=== PATIENT | female | born 1950 | race Caucasian/White ===

== ENCOUNTER 2016-08-11 12:41 | Day surgery (SDC) | payer MEDICARE ==
[~2016-08-11] VITALS: Ht 167.6 cm; Wt 91.2 kg
[2016-08-11] VITALS (8 sets, daily range): BP systolic 117–139; BP diastolic 57–78; PULSE 70–81; RESP 14–18; O2SAT 95–100
[~2016-08-11 12:41] MED LIST: ALPR0.254 PO; BUPR150T12 PO; CeFAZolin 2 Gm/50 mL D5W IV Premix IV ONE; DULO30CA50 PO; HYDR-3797 PO; LOSA100T29 PO; MELA3TAB46 PO; MULT-1018 PO; OXYC1TAB24 PO
[2016-08-11] MEDS ORDERED: Glycopyrrolate 0.2 mg/mL 5 mL Inj ONE (12:42)
[2016-08-11] MEDS ORDERED: MetoCLOpramide 5 mg/mL 2 mL Inj ONE (12:42)
[2016-08-11] MEDS ORDERED: Ondansetron 2 mg/mL 2 mL Inj ONE (12:42)
[2016-08-11] MEDS ORDERED: Propofol 10,000 mCg/mL 20 mL Inj ONE (12:42)
[2016-08-11] MEDS ORDERED: Neostigmine 1 mg/mL 5 mL Inj ONE (12:42)
[2016-08-11] MEDS ORDERED: fentaNYL-PF 50 mCg/mL 2 mL Inj ONE (12:42)
[2016-08-11] MEDS ORDERED: Dexamethasone 4 mg/mL Inj ONE (12:42)
[2016-08-11] MEDS ORDERED: HYDROmorphone 2 mg/mL Inj ONE (12:42)
[2016-08-11] MEDS ORDERED: CeFAZolin 2 Gm/50 mL D5W Duplex Bag IV ONE (13:11)
[2016-08-11] MEDS: Lactated Ringer's 1,000 ML IV SCH ×2 (13:19→15:00)
--- NOTE | 2016-08-11 14:04 | PCM.HPANE ---
Patient Data Surgeon Admitting Provider: Attending Provider:Jamaal Teixeira DO Primary Care Physician:[place]iana Kyle MD [place] [facility] Reason for Visit Left Patella Fracture Ht/WT & BMI Height (Feet): 5 Height (Inches): 6.00 Weight (Kilograms): 91.170 Body Mass Index 32.00 Allergies Coded Allergies: lisinopril (Verified Allergy, Intermediate, COUGH, 06/11/16) Past Anesthesia History Anesthesia History: Denies:: Anesthesia Reactions, Malignant Hyperthermia Diabetes History Hx Diabetes?: No MRSA MRSA: No Medications Active Scripts Hydroxyzine Pamoate (HydrOXYzine Pamoate)25 Mg Umnmftj14 Mg PO Q4H PRN For Spasm and/or Restlessness #40 CAPSULE Prov:Tamika Joseph PA-C 06/19/16 oxyCODONE-Acetaminophen 5-325 mg 1 Each Tablet1-2 Tab PO Q4H PRN For Severe Pain #90 TABLET Max 8 per day Prov:Tamika Joseph PA-C 06/19/16 Reported Medications Multivitamin (Multi Vitamin Daily)1 Each Tablet1 Each PO DAILY 30 Days Ref 0 06/17/16 Bupropion ER 150 Mg Tablet.er150 Mg PO DAILY #60 06/17/16 Duloxetine 30 Mg Capsule.dr30 Mg PO DAILY #30 06/17/16 Alprazolam 0.25 Mg Tablet0.25 Mg PO TID PRN For Anxiety Ref 0 06/11/16 Melatonin 3 Mg Tab.rapdis3 Mg PO HS 06/11/16 Losartan Potassium 100 Mg Pczlmb925 Mg PO DAILY 06/11/16 Discontinued Scripts Enoxaparin Sodium 40 Mg/0.4 Ml Ozfenis60 Mg SUBQ Q24 #17 SYR Prov:Tamika Joseph PA-C 06/19/16 History History of ENT Problems?: Yes HEENT History: Positive for:: Hearing Problem Hx of Heart Problems?: Yes Cardiovascular History: Positive for:: Edema (PEDAL) Hypertension (HYPERLIPIDEMIA) Hx of Respiratory Problem?: No Respiratory History: Denies:: Use of C-PAP Machine Hx Neurologic Problems?: No Hx of GI Problems?: No Gastrointestinal History: Positive for:: Gastroesphageal Reflux Hx of Problems?: No Female Hx: Denies:: Currently Skin History: Denies:: History Skin Disorders? Pressure Ulcers Hx Musculoskeletal Problems?: Yes Musculoskeletal History: Positive for:: Degenerative Joint Joint Replacement (LEFT AND HIP, LEFT KNEE, ) Musculoskeletal Trauma (LEFT PATELLA) Hx of Psycho/Social Problems?: Yes Psycho Social History: Positive for:: Anxiety Hx Depression Hx Surgeries?: Yes (LT ROD,RT CTR,RT BUNIONECTOMYHIP REPLACEMENT,ORIF L PATELLA ) Hx Any Other Health Problems?: Yes Other History: Denies:: Cancer Endocrine Disease Hospitalization Thyroid Disease History Blood Transfusions: Denies:: Blood Transfusions Hx Diabetes: No Hx Alcohol Use: NoHx Substance Use: No Smoking Status: Former Smoker Have You Smoked inLast 12 mo: No Stop/Bang S-Snoring: Do You Snore Loudly: No T-Tired: feel tired, fatigued: No O-Obsered: Observed not breath: No P-Blood Pressure: treated: Yes B- Body Mass Index > 35 kg/m2: No A- Age over 50: Yes N- Neck Large Circumference: No G- Gender Male: No NILA Total Score: 2 NILA Risk Assessment: Low Risk, <3 Yes Risk Assessment Category Category 1A: Patient has history of documented sleep apnea, and HAS NOT received any narcotic, sedative or anesthesia administration during this stay. Category 1B: Patient has history of documented sleep apnea, and HAS received any narcotic , sedative or anesthesia administration during this stay Category 2: Patient has SUSPECTED Obstructive Sleep Apnea, and HAS received any narcotic , sedative or anesthesia administration during this stay. Category 3: Patient has SUSPECTED Obstructive Sleep Apnea and HAS NOT received narcotic, sedative or anesthesia administration during this stay. Category 4: Outpatient in Procedural Areas with known sleep apnea or who screen positive for High Risk via the STOP/BANG questionnaire. Exam Exam Vital Signs Vital Signs Date Time Temp Pulse Resp B/P Pulse Ox O2 Delivery O2 Flow Rate FiO2 08/11/16 13:22 36.6 81 16 117/73 95 Room Air General Appearance: Alert, Oriented X3, Cooperative, No Acute Distress HEENT/AIRWAY: MP 2 Lungs: Clear to Auscultation, Normal Air Movement Heart: Exam Unremarkable, Regular Rate/Rhythm, No Murmurs/Rubs/Gallops Meds/Labs/Diagnostics Admission Meds Current Medications Lactated Ringer's (Lr) 1,000 ml @ 10 mls/hr Q24H IV Last administered on t 13:19; Start 08/11/16 at 05:00; Stop 08/15/16 at 08:59 Plan Impression Patient chart reviewed, patient interviewed and anesthestic plan with risks, benefits, and alternatives discussed, and informed consent obtained. NPO Status: 1030 CLEAR WITH MED ASA Physical Status: ASA2 Mod Systemic Disease Anesthetic Plan: GA, Regional Block (rescue adductor canal block/femoral nerve block consented for) Bene/Risks/Altern/Consents: Yes HP Complete Prior to Induction: Yes Other Adductor canal block for patella repair requested [facility], Anesthesiologist Sincere, patient halted adductor canal block during the procedure because of pain during block. Patient agreed to rescue adductor canal block postoperatively if in severe pain. Hubert Arauz MD Aug 11, 2016 14:04 Jamaal Avalos MD Aug 11, 2016 16:01
[2016-08-11] MEDS ORDERED: Ropivacaine-PF 0.5% 30 mL Inj INFILTRATE ONE (15:58)
--- NOTE | 2016-08-11 15:59 | PCM.HPANE ---
Patient Data Surgeon Admitting Provider: Attending Provider:Jamaal Teixeira DO Primary Care Physician:Indiana Kyle MD Other Provider:[place] [facility] Reason for Visit Left Patella Fracture Ht/WT & BMI Height (Feet): 5 Height (Inches): 6.00 Weight (Kilograms): 91.170 Body Mass Index 32.00 Allergies Coded Allergies: lisinopril (Verified Allergy, Intermediate, COUGH, 06/11/16) Past Anesthesia History Anesthesia History: Denies:: Anesthesia Reactions, Malignant Hyperthermia Diabetes History Hx Diabetes?: No MRSA MRSA: No Medications Active Scripts Hydroxyzine Pamoate (HydrOXYzine Pamoate)25 Mg Dxvmniz26 Mg PO Q4H PRN For Spasm and/or Restlessness #40 CAPSULE Prov:Tamika Joseph PA-C 06/19/16 oxyCODONE-Acetaminophen 5-325 mg 1 Each Tablet1-2 Tab PO Q4H PRN For Severe Pain #90 TABLET Max 8 per day Prov:Tamika Joseph PA-C 06/19/16 Reported Medications Multivitamin (Multi Vitamin Daily)1 Each Tablet1 Each PO DAILY 30 Days Ref 0 06/17/16 Bupropion ER 150 Mg Tablet.er150 Mg PO DAILY #60 06/17/16 Duloxetine 30 Mg Capsule.dr30 Mg PO DAILY #30 06/17/16 Alprazolam 0.25 Mg Tablet0.25 Mg PO TID PRN For Anxiety Ref 0 06/11/16 Melatonin 3 Mg Tab.rapdis3 Mg PO HS 06/11/16 Losartan Potassium 100 Mg [place]680 Mg PO DAILY 06/11/16 Discontinued Scripts Enoxaparin Sodium 40 Mg/0.4 Ml Vccxuki91 Mg SUBQ Q24 #17 SYR Prov:Tamika Joseph PA-C 06/19/16 History History of ENT Problems?: Yes HEENT History: Positive for:: Hearing Problem Hx of Heart Problems?: Yes Cardiovascular History: Positive for:: Edema (PEDAL) Hypertension (HYPERLIPIDEMIA) Hx of Respiratory Problem?: No Respiratory History: Denies:: Use of C-PAP Machine Hx Neurologic Problems?: No Hx of GI Problems?: No Gastrointestinal History: Positive for:: Gastroesphageal Reflux Hx of Problems?: No Female Hx: Denies:: Currently Skin History: Denies:: History Skin Disorders? Pressure Ulcers Hx Musculoskeletal Problems?: Yes Musculoskeletal History: Positive for:: Degenerative Joint Joint Replacement (LEFT AND HIP, LEFT KNEE, ) Musculoskeletal Trauma (LEFT PATELLA) Hx of Psycho/Social Problems?: Yes Psycho Social History: Positive for:: Anxiety Hx Depression Hx Surgeries?: Yes (LT ROD,RT CTR,RT BUNIONECTOMYHIP REPLACEMENT,ORIF L PATELLA ) Hx Any Other Health Problems?: Yes Other History: Denies:: Cancer Endocrine Disease Hospitalization Thyroid Disease History Blood Transfusions: Denies:: Blood Transfusions Hx Diabetes: No Hx Alcohol Use: NoHx Substance Use: No Smoking Status: Former Smoker Have You Smoked inLast 12 mo: No Stop/Bang S-Snoring: Do You Snore Loudly: No T-Tired: feel tired, fatigued: No O-Obsered: Observed not breath: No P-Blood Pressure: treated: Yes B- Body Mass Index > 35 kg/m2: No A- Age over 50: Yes N- Neck Large Circumference: No G- Gender Male: No NILA Total Score: 2 NILA Risk Assessment: Low Risk, <3 Yes Risk Assessment Category Category 1A: Patient has history of documented sleep apnea, and HAS NOT received any narcotic, sedative or anesthesia administration during this stay. Category 1B: Patient has history of documented sleep apnea, and HAS received any narcotic , sedative or anesthesia administration during this stay Category 2: Patient has SUSPECTED Obstructive Sleep Apnea, and HAS received any narcotic , sedative or anesthesia administration during this stay. Category 3: Patient has SUSPECTED Obstructive Sleep Apnea and HAS NOT received narcotic, sedative or anesthesia administration during this stay. Category 4: Outpatient in Procedural Areas with known sleep apnea or who screen positive for High Risk via the STOP/BANG questionnaire. Low Risk, <3 Yes Exam Exam Vital Signs Vital Signs Date Time Temp Pulse Resp B/P Pulse Ox O2 Delivery O2 Flow Rate FiO2 08/11/16 13:22 36.6 81 16 117/73 95 Room Air General Appearance: Alert, Oriented X3, Cooperative, No Acute Distress HEENT/AIRWAY: MP 2 Lungs: Clear to Auscultation, Normal Air Movement Heart: Exam Unremarkable, Regular Rate/Rhythm, No Murmurs/Rubs/Gallops Meds/Labs/Diagnostics Admission Meds Current Medications Lactated Ringer's (Lr) 1,000 ml @ 10 mls/hr Q24H IV Last administered on 1/10/ 17at 13:19; Start 08/11/16 at 05:00; Stop 08/15/16 at 08:59 Plan Impression Patient chart reviewed, patient interviewed and anesthestic plan with risks, benefits, and alternatives discussed, and informed consent obtained. NPO Status: 1030 CLEAR WITH MED ASA Physical Status: ASA2 Mod Systemic Disease Anesthetic Plan: GA Bene/Risks/Altern/Consents: Yes HP Complete Prior to Induction: Yes Jamaal Avalos MD Aug 11, 2016 14:36
[2016-08-11] MEDS ORDERED: Lactated Ringer's 1,000 ML IV SCH (16:01)
[2016-08-11] MEDS ORDERED: Lactated Ringer's 500 ML IV PRN (16:01)
[2016-08-11] MEDS ORDERED: EPHEDrine Sulfate 50 mg/mL Inj IVPUSH PRN (16:05)
[2016-08-11] MEDS ORDERED: HYDROmorphone 1 mg/mL Inj IVPUSH PRN (16:05)
[2016-08-11] MEDS ORDERED: MetoCLOpramide 5 mg/mL 2 mL Inj IVPUSH PRN (16:05)
[2016-08-11] MEDS ORDERED: Ondansetron 2 mg/mL 2 mL Inj IVPUSH PRN (16:05)
[2016-08-11] MEDS ORDERED: Labetalol 5 mg/mL 4 mL Inj IV PRN (16:05)
[2016-08-11] MEDS ORDERED: hydrALAZINE 20 mg/mL Inj IVPUSH PRN (16:05)
[2016-08-11] MEDS ORDERED: fentaNYL-PF 50 mCg/mL 2 mL Inj IVPUSH PRN (16:05)
[2016-08-11] MEDS ORDERED: Phenylephrine 10,000 mCg/mL Inj IVPUSH PRN (16:05)
[2016-08-11] MEDS ORDERED: Atropine 0.4 mg/mL Inj IVPUSH PRN (16:05)
[2016-08-11] MEDS ORDERED: oxyCODONE-Acetamin 5-325 mg Tablet PO PRN (16:10)
[2016-08-11] MEDS ORDERED: hydrOXYzine Pamoate 25 mg Capsule PO PRN (16:10)
--- NOTE | 2016-08-11 16:59 | PCM.ANEP1 ---
Post Anesthesia Phase 1 PACU Phase 1 Assessment Vital Signs Vital Signs Date Time Temp Pulse Resp B/P Pulse Ox O2 Delivery O2 Flow Rate FiO2 08/11/16 16:54 75 14 139/78 99 Room Air 08/11/16 16:39 72 16 122/65 100 Simple Mask 8 08/11/16 16:35 73 17 119/61 100 Simple Mask 8 08/11/16 16:31 36.2 80 18 123/57 100 Simple Mask 8 08/11/16 13:22 36.6 81 16 117/73 95 Room Air Anesthetic Administered: GA Level of Alertness: Awake, talking SPANN's with Equal Strength: Yes Pain: No Nausea or Vomiting: No Oxygen Delivery: Room Air Lungs: Clear to Auscultation, Normal Air Movement Dermatome Level: Full Sensation Jamaal Avalos MD Aug 11, 2016 16:59
--- NOTE | 2016-08-11 17:00 | PCM.ANEP2 ---
Post Anesthesia Evaluation ASA/CMS Post Anesthesia VS in Patient's Normal Range?: Yes Resp Stable; Airway Patent?: Yes CV Function & Hydration Stable: Yes Mental Status Recovered?: Yes Pain control Satisfactory?: Yes N/V Control Satisfactory?: Yes Jamaal Avalos MD Aug 11, 2016 17:00
--- NOTE | 2016-08-11 20:46 | DRSVH ---
PROCEDURE: X-RAY SURGICAL FLUORO C-ARM <1 HR INDICATIONS: INTRA OPERATIVE IMAGING COMPARISON: None. FINDINGS: A single C-arm image was obtained in the OR. This is a lateral view of the left knee durin g surgery. IMPRESSION: Lateral view of the left knee during surgery. Dictated by: Colby Rosario M.D. on 08/11/2016 at 20:44 Approved by: Colby Rosario M.D. on 08/11/2016 at 20:44
--- NOTE | 2016-08-12 00:17 | OP ---
[address] [address] OPERATIVE REPORT PATIENT: TIFFANIE ALEXANDRE : 1950 MR#: [id number] ADMIT: 08/11/2016 JOB ID: [id number] DATE OF SURGERY: 08/11/2016 PREOPERATIVE DIAGNOSIS(ES): Left periprosthetic patellar fracture. POSTOPERATIVE DIAGNOSIS(ES): Left periprosthetic patellar fracture. PROCEDURE: Left patella wound exploration with examination under anesthesia and fluoroscopic exam. SURGEON: Jamaal Teixeira DO. MONEY ROOM TELLER: 1. Tamika Joseph PA-C. 2. Kurt Wells DO. INDICATIONS: The patient is a 66-year-old female who underwent a left total knee arthroplasty and stumbled, felt a pop in her knee. She had a difficult time with extension of the leg and pain. Thereafter, had an x-ray and CT scan demonstrating displaced fracture of the superior pole of the patella. We discussed treatment options for this, and considering she had an extensor lag elected to proceed with open reduction and internal fixation of the patella fragment and possible advancement of the quad tendon and removal of the fragment. We discussed risks, benefits and possible complications of surgery. All questions were answered and she wished to proceed. PROCEDURE IN DETAIL: The patient was brought to the operating room. She was given a preoperative antibiotic and general anesthetic. The left lower extremity was sterilely prepped and draped. A tourniquet was used for hemostasis. An incision was made over the anterior knee over her previous incision area and dissection was carefully carried through the subcutaneous tissue down onto the patella. The extensor mechanism was intact and there was no disruption in the retinaculum or the tendon itself. I probed the area with a spinal needle and there was a small defect present over the superolateral patella, but no disruption in the extensor mechanism itself. We examined the knee under fluoroscopy with AP and lateral imaging and the fracture had actually reduced and was minimally displaced at this point. I; therefore, elected to simply close the wound and treat this conservatively rather than risk infection with opening up the fracture and taking down the fracture fragment. Therefore, the wound was irrigated and tourniquet was let down. Electrocautery was used for hemostasis. The wound was closed with 2-0 V-Loc 3-0 V-Loc suture. Sterile dressings were applied. Patient tolerated the procedure well. Blood loss was minimal. POSTOPERATIVE PROTOCOL: Have the patient maintain a knee immobilizer with the leg in full extension for a total of six weeks. She may weightbear as tolerated and follow up in two weeks or sooner if needed. [place]
== END 2016-08-11 23:59 | disposition home or self-care (01) ==
LOC: SAS 12:41
PROVIDERS: ATTEND Orthopaedic Surgery
DX: M97.12XA Periprosthetic fracture around internal prosthetic left knee joint, initial encounter (principal); I10 Essential (primary) hypertension; M19.91 Primary osteoarthritis, unspecified site; G89.4 Chronic pain syndrome; Z79.891 Long term (current) use of opiate analgesic; Z96.642 Presence of left artificial hip joint
CPT/HCPCS: 27310; 76000; J0690; J1100; J1170; J2405; J2710; J2765; J2795; J7120